=== PATIENT | male | born 1950 | race Caucasian/White ===

== ENCOUNTER 2016-10-17 09:57 | Outpatient (CLI) | payer OTHER ==
[2016-10-25] MEDS ORDERED: ASPIRIN ADULT L81 M1 PO (15:58)
[2016-10-25] MEDS ORDERED: MECLIZINE HCL12.5 MG PO (15:58)
[2016-10-25] MEDS ORDERED: ALBUTEROL HFA60 DOSE IN (15:59)
[2016-10-25] MEDS ORDERED: FENOFIBRATE54 MG PO (15:59)
[2016-10-25] MEDS ORDERED: SPIRIVA18 MCG INH (16:00)
[2016-10-25] MEDS ORDERED: ATENOLOL25 MG PO (16:01)
[2016-10-25] MEDS ORDERED: OMEPRAZOLE20 M1 PO (16:01)
[2016-10-25] MEDS ORDERED: DILANTIN100 MG PO (16:02)
[2016-10-25] MEDS ORDERED: SIMVASTATIN20 MG PO (16:03)
== END 2016-10-17 23:00 ==
LOC: LAB SRH 09:57
DX: G56.22 Lesion of ulnar nerve, left upper limb (principal)
CPT/HCPCS: 90004; 90074; 90100; 91114; 91504; 91505; 95059

== ENCOUNTER 2016-10-30 07:58 | Day surgery (SDC) | payer OTHER ==
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
[~2016-10-30] VITALS: Ht 188 cm; Wt 109.8 kg
[~2016-10-30 07:58] MED LIST: ALBUTEROL HFA60 DOSE IN; ASPIRIN ADULT L81 M1 PO; ATENOLOL25 MG PO; DILANTIN100 MG PO; FENOFIBRATE54 MG PO; MECLIZINE HCL12.5 MG PO; OMEPRAZOLE20 M1 PO; SIMVASTATIN20 MG PO; SPIRIVA18 MCG INH
--- NOTE | 2016-10-30 11:58 | Postoperative Progress Note ---
Postop Progress Note Preoperate Diagnosis: Left ulnar palsy Postoperative Diagnosis: Same Surgeon: Vasquez Orellana MD Anesthesia: General ETT Findings: Tardy ulnar nerve palsy. Procedure: Left ulnar nerve transposition Complications? No Condition: Stable EBL: 50cc Blood Administered: 0 Specimen(s) removed? No Grafts or Implants? No . (See nursing notes for details of grafts/implants)
--- NOTE | 2016-10-30 12:01 | Provider's Discharge Care Plan ---
Problem, Goal, Plan Problem List 1. Tardy ulnar nerve palsy, left
--- NOTE | 2016-10-30 12:01 | Provider's Discharge Care Plan ---
Problem, Goal, Plan Problem List 1. Tardy ulnar nerve palsy, left
[2016-10-30] MEDS ORDERED: OXAYDO5 MG PO (12:04)
--- NOTE | 2016-10-30 12:44 | OPERATIVE REPORT ---
DATE OF CONSULTATION: 10/30/2016 PREOPERATIVE DIAGNOSIS: 1. Ulnar nerve palsy, left upper extremity POSTOPERATIVE DIAGNOSIS: 1. Ulnar nerve palsy, left upper extremity PROCEDURE PERFORMED: 1. The operation proposed was a left ulnar nerve transposition; the operation performed was left ulnar nerve transposition ESTIMATED BLOOD LOSS: About 50 mL. COMPLICATIONS: None. PATHOLOGY SPECIMEN: None. SURGICAL TECHNIQUE: The patient was taken to the operating room where he was given general anesthetic and the arm was prepped and draped in the usual sterile fashion. A longitudinal incision was made posteromedially over the elbow and carried down through subcutaneous tissue. The ulnar nerve was easily identified and preserved and dissected free from the point where it penetrated the fascia proximally to distally, where it started to branch out, and then was it transposed anterior to the medial epicondyle. We cut out a little bit of the ligament and muscle attachment to provide an opening space distally for the nerve to lie, and where when we move the elbow through range of motion it was not under any tension and it sat very nicely. We went and closed then using 2-0 Vicryl interrupted [id number] sutures to sew the subcutaneous fat of the skin flap back to the tissue just distal to the medial epicondyle, thus maintaining the nerve in its position anterior to the medial epicondyle. Then the subcutaneous layer was closed with 2-0 Vicryl running suture and the skin with 3-0 Vicryl running subcuticular suture. He was then injected along the skin line with a small quantity of 0.5% Marcaine without epinephrine and dressed with Xeroform, ABDs, wrapped with a sterile Webril, and Aric bandage loosely applied. He was awakened and taken to the recovery room. He is in stable condition.
[2016-10-30 13:55] VITALS: BP 150/93
== END 2016-10-30 14:16 | disposition home or self-care (01) ==
LOC: OR SRH 07:58 → SCU SRH 07:58 → OR SRH 10:00
PROVIDERS: Orthopaedic Surgery
PROC: 01X40Z4 Transfer Ulnar Nerve to Ulnar Nerve, Open Approach (ICD-10-PCS; principal; 2016-10-30 10:00)
DX: G56.22 Lesion of ulnar nerve, left upper limb (principal); J44.9 Chronic obstructive pulmonary disease, unspecified
CPT/HCPCS: 29240; 50002; 60001; 70002; 80102; 80118; 80212; 83291; 84038; 84044; 84327